=== PATIENT | male | born 1975 | race Caucasian/White ===

== ENCOUNTER 2017-03-01 03:57 | Observation (INO) | payer BC ==
[2017-03-01 05:48] LABS: Hemoglobin 13.6 gm/dL (13.5-18.0); Mean Cell Volume 75.3 fl (78-100); Mean Corpuscular Hemoglobin 24.4 pg (27-31); Mean Corpuscular Hgb Conc 32.4 g/dl (32-36); Mean Platelet Volume 9.5 fl (6.0-9.5); Neutrophil % 70.3 % (42-75.0); Platelet Count 337 K/mm3 (150-450); Red Blood Count 5.58 M/mm3 (4.7-6.0); Red Cell Distribution Width 15.1 % (11.5-14.0)
[2017-03-01] MEDS ORDERED: MORPHINE SULFATE 10 MG/ML SYRG ONE ×2 (05:50→07:50)
[2017-03-01] MEDS ORDERED: MORPHINE SULFATE 10 MG/ML SYRG IV ONE ×2 (05:50→06:01)
[2017-03-01 06:03] LABS: Albumin * 3.8 gm/dl (3.4-5.0); Anion Gap 13.2 mmol/L (6.8-13.8); BUN/Creatinine Ratio 11.3 (9.0-21.6); CRP 12.7 mg/dL (0.0-0.9); Ca. Corrected For Albumin 8.8 mg/dL (8.4-10.2); Carbon Dioxide 26.7 mmol/L (24-32.6); Potassium 3.9 mmol/L (3.4-4.6); Total Protein 8.6 gm/dL (6.2-8.2)
--- NOTE | 2017-03-01 06:10 | ERNOTE ---
Integumentary HPI - General Presenting Symptoms: abscess, other Time Seen by Provider: 03/01/17 04:42 Source: patient - Immun/Allergies/Home Medications Immunizations: IMMUNIZATION HX Immunizations Up to Date Yes History of Influenza Vaccine No Hx Pneumococcal Vaccination No Allergies/Adverse Reactions: Allergies Allergy/AdvReac Type Severity Reaction Status Date / Time Penicillins Allergy Mild rash Verified 03/01/17 05:50 Home Medications: HOME MEDICATIONS Allopurinol [Zyloprim (Allopurinol)] 100 mg PO TID 08/27/15 [Last Taken Unknown] Atorvastatin Calcium 40 mg PO DAILY 08/27/15 [Last Taken Unknown] Naproxen [Naprosyn] 500 mg PO BID PRN #60 tab 08/27/15 [Last Taken Unknown] Testosterone 100 gm MC Q7D 03/01/17 [Last Taken Unknown] - Pain Pain Score: 10 - History of Present Illness Narrative: Patient is a 41-year-old male established patient objective and she presents with a one-week history of increasing scrotal discomfort and redness and concern for abscess. Patient reports that he had a vasectomy many years ago and has had several bouts of superficial cellulitis infection in that area patient denies fevers chills he reports significant pain and increased swelling of the left scrotum itself quite excruciating at this time. Date (Duration): 02/26/17 Time (Timing): 08:00 Location: Reports: genitalia Quality: Reports: painful, other - left testicular swelling. Severity: severe Exposure: Reports: other - has been shaving of the genital area in the past. Previous history of mastectomy. Modifying Factors - (Improves): Reports: nothing Modifying Factors - (Worsens): Reports: other - previous compromise evidence of infection in the past. Associated Symptoms: Reports: change in skin texture, swelling/mass/lumps Review of Systems - Review of Systems Constitutional: Present: no symptoms reported, decreased activity level ENT: Present: no symptoms reported Respiratory: Present: no symptoms reported Cardiology: Present: no symptoms reported Genitourinary: Present: See HPI, pain Musculoskeletal: Present: no symptoms reported Skin: Present: other - red tenderness and significant inflammation of the left scrotal area. Neurological: Present: no symptoms reported Endocrine: Present: no symptoms reported Hematologic/Lymphatic: Present: other - scrotal swelling no lymphadenopathy All Other Systems: All systems neg except as marked - Narrative Narrative: Patient past medical history past surgical history medications allergies and social history and family history reviewed. - Patient's Past Medical History Patient History - Medical: Other - gout Patient History - Cardiac/Respiratory: Hypertension, Hyperlipidemia Patient History - Cancer: No Hx of Cancer Patient History - Surgical Procedures: Vasectomy, Orthopedic Patient History - Other: None - Social History Living Situations: home Abuse History: No History of abuse Psych History: No pertinent hx Smoking Status: Former smoker Have you smoked in the past 12 months: No Alcohol Use: occasionally Drug Use: none - Immunizations Immunizations Up to Date: Yes Hx Pneumococcal Vaccination: No History of Influenza Vaccine: No Physical Exam - Physical Exam Narrative: Patient is in moderate distress due to significant pain after analgesic, he has pain was down to approximately a 4. General Appearance: Present: wd/wn, severe distress Head Exam: Present: normal inspection, no evidence of injury Eye Exam: Normal inspection: bilateral, PERRL: bilateral, EOMI: bilateral Ears, Nose, Throat: Present: normal ENT inspection Neck: Present: normal inspection, nontender Respiratory: Present: no respiratory distress, normal breath sounds, chest nontender, lungs clear Cardiovascular/Chest: Present: regular rate, rhythm, no murmur, normal peripheral pulses Peripheral Pulses: N=norm/S=strong/W=weak/B=bound/A=absent: Carotid (R): Normal , Carotid (L): Normal, Femoral (R): Normal, Femoral (L): Normal Gastrointestinal/Abdominal: Present: normal bowel sounds, nontender, nondistended Rectal Exam: Present: deferred Male Genitals Exam: Present: erythema, inguinal tenderness, scrotum tenderness ( L), testicular tenderness (L), other - significant cellulitis over the left scrotal and testicle area of the testicle itself is identified in all hydrocele sac.. Absent: urethral discharge Back Exam: Present: normal inspection Extremity Exam: Present: normal inspection Neurological Exam: Present: alert, oriented, normal mood/affect Skin Exam: Present: other - see above for genitalia exam. Lymphatic Exam: Present: no adenopathy. Absent: inguinal node (R), inguinal node (L) ED Progress - Results and Orders Patient's Lab Results:: I have reviewed the patient's lab results. Results and Orders: Laboratory Tests 03/01/17 03/01/17 03/01/17 05:45 05:45 06:02 WBC 10.0 RBC 5.58 Hgb 13.6 Hct 42.0 MCV 75.3 L MCH 24.4 L MCHC 32.4 RDW 15.1 H Plt Count 337 MPV 9.5 Immature Gran % (Auto) 0.40 Immature Gran # (Auto) 0.04 H Neutrophils % 70.3 Lymphocytes % 21.8 Monocytes % 6.2 Eosinophils % 0.9 Sodium 136 Plasma Sodium 136 Potassium 3.9 Chloride 100 Carbon Dioxide 26.7 Anion Gap 13.2 BUN 13 Creatinine 1.15 Est GFR (Non-Af Amer) 74 BUN/Creatinine Ratio 11.3 Random Glucose 115 H Lactic Acid, Venous 0.7 Calcium 9.0 Calcium Adj for Albumin 8.8 Total Bilirubin 1.0 AST 17 ALT 25 Alkaline Phosphatase 74 C-Reactive Prot, Quant 12.7 H Total Protein 8.6 H Albumin 3.8 Urinalysis is pending as yet. - Vital Signs Patient's Vital Signs:: I have reviewed the patient's vital signs. Vital Signs: Vital Signs 03/01/17 04:01 Temperature 36.2 C L Pulse Rate 105 H Respiratory 18 Rate Blood Pressure 163/88 O2 Sat by Pulse 97 Oximetry - CT/Ultrasound CT/Ultrasound Narrative: Patient reports increased swelling and redness of the left testicle and scrotal area. Us of scrotum: [place] [address] NAME: MOUNA LANDERS : 1975 MR #: [id number] CC: Malina López DO LOC: ER ADM DATE: X-RAY REPORT [id number] ULT/US Scrotum Exam Date: 03/01/2017 05:24 Ordering Physician: Malina López Indication: Left testicle is hard and swollen Comparison: November 26, 2013 Technique: US Scrotum Findings: The testicles are normal size and echotexture bilaterally. Normal blood flow. No intratesticular masses. There is a possible small varicocele on the right. There is a small right hydrocele There is a left mild to moderate hydrocele. No left varicocele. There is some thickening and complexity to the epididymis on the left with some increased vascularity, correlate for epididymitis on the left. There is scrotal skin thickening bilaterally. Measurements are as follows: Right testicle: 3.8 x 2.3 x 2.2 cm Left testicle: 3.8 x 2.5 x 2.5 cm IMPRESSION: 1. Correlate for possible left-sided epididymitis 2. Normal-appearing testicles 3. [id number] left hydrocele, and a small right hydrocele Preliminary report was delivered to the emergency room via the [facility] service at 7:07 AM on March 01, 2017. Electronically signed by Eric Esparza M.D.. Eric Esparza MD Dict: 03/01/17 0756 Typed: 03/01/17 0756/ 03/01/17 0800 03/01/17 0803 - Progress/Reassessment Chief Complaint: Abscess Progress:: Improved - analgesic effective Plan - Plan Plan: Patient will be admitted to Dr. Pitt for IV antibiotics Departure Clinical Impression: Cellulitis and abscess of unspecified site Clinical Impression: (Ruled Out): Cellulitis and perichondritis of larynx - Departure Disposition: [facility] Condition: Good
[2017-03-01] MEDS ORDERED: MORPHINE SULFATE 2 MG/ML DISP.SYRIN ONE (07:36)
[2017-03-01] MEDS ORDERED: VANCOMYCIN HCL 2 GM in DEXTROSE 5 % IN WATER 500 ML IV PRN ×2 (07:45)
[2017-03-01] MEDS ORDERED: DOXYCYCLINE HYCLATE 100 MG TABLET PO SCH (09:30)
[2017-03-01] MEDS ORDERED: IBUPROFEN 600 MG TABLET PO PRN (09:47)
[2017-03-01] MEDS ORDERED: HYDROmorphone HCL 1 MG/ML DISP.SYRIN IV PRN (09:47)
[2017-03-01] MEDS ORDERED: ONDANSETRON HCL/PF 2 MG/ML VIAL IV PRN (09:47)
[2017-03-01] MEDS ORDERED: diphenhydrAMINE HCL 50 MG/ML VIAL IV PRN (09:47)
[2017-03-01] MEDS ORDERED: HYDROcodone/ACETAMINOPHEN 1 EACH TABLET PO PRN (09:47)
--- NOTE | 2017-03-01 10:01 | HP ---
Chief Complaint - Chief Complaint Date of Service: 03/01/17 Time of Service: 10:01 Chief Complaint: Testicular pain History of Present Illness: The patient is a 41-year-old male who presented to the emergency department with complaints of increasing left testicular swelling, redness and pain. The symptoms have been progressively getting worse over the last week or so. I was made aware of these symptoms yesterday at which time the patient was started on antibiotic; however, he only took one dose prior to arrival in the emergency department. The patient admits to having intermittent episodes like his current presentation ever since he had a vasectomy 5+ years ago. - Patient's Past Medical History Patient History - Medical: Other - gout Patient History - Cardiac/Respiratory: Hypertension, Hyperlipidemia Patient History - Cancer: No Hx of Cancer Patient History - Surgical Procedures: Vasectomy, Orthopedic Patient History - Other: None - Family History Grandmother-Paternal Family History - Medical: Migraines Mother Family History - Medical: History Unknown Family History - Cardiac/Respiratory: History Unknown Family History - Cancer: History Unknown Father Family History - Medical: No pertinent hx Family History - Cardiac/Respiratory: No pertinent hx Family History - Cancer: No pertinent family hx - Social History Living Situations: home Abuse History: No History of abuse Psych History: No pertinent hx Smoking Status: Former smoker Have you smoked in the past 12 months: No Do you dip or chew tobacco: Yes Alcohol Use: occasionally Drug Use: none - Immunizations Immunizations Up to Date: Yes Hx Pneumococcal Vaccination: No History of Influenza Vaccine: No Review Of Systems (GEN) - Review of Systems Generalized/Overall Review: Present: No Symptoms Reported EENTM: Present: No Symptoms Reported Respiratory: Present: No Symptoms Reported Cardiac: Present: No Symptoms Reported Abdominal: Present: No Symptoms Reported Genitourinary: Present: Other - Pain swelling and redness to scrotum left>right and groin left>right Musculoskeletal: Present: Other - Chronic back and joint pain Neurological: Present: No Symptoms Reported Skin: Present: No Symptoms Reported Endocrine: Present: No Symptoms Reported Misc: All systems neg except as marked Immunizations: IMMUNIZATION HX Immunizations Up to Date Yes History of Influenza Vaccine No Hx Pneumococcal Vaccination No Allergies/Adverse Reactions: Allergies Allergy/AdvReac Type Severity Reaction Status Date / Time Penicillins Allergy Mild rash Verified 03/01/17 10:48 Home Medications: HOME MEDICATIONS Allopurinol [Zyloprim (Allopurinol)] 100 mg PO TID 08/27/15 [Last Taken Unknown] Losartan Potassium [Cozaar] 100 mg PO DAILY 03/01/17 [Last Taken Unknown] Testosterone 100 gm MC Q7D 03/01/17 [Last Taken Unknown] Exam - Exam Vital Signs: Vital Signs - Last Taken Temp 37.6 C H 03/01/17 08:46 Pulse 82 03/01/17 08:46 Resp 20 03/01/17 08:46 BP 129/54 03/01/17 08:46 Pulse Ox 97 03/01/17 08:46 Constitutional: Present: Alert, Oriented x3, Cooperative, Mild distress - Appears uncomfortable, especially with movement, secondary to scrotal pain, Obese ENT Exam: Present: hearing grossly normal, moist mucous membranes Eye Exam: bilateral eye: normal inspection, PERRL Respiratory: Present: lungs clear, normal breath sounds, no respiratory distress , no accessory muscle use Cardiovascular/Chest: Present: regular rate, rhythm, no murmur, edema - Trace dependent edema in bilateral lower extremities Abdomen: Present: soft, nontender, nondistended, obese /Rectal: Present: Other - Pain with movement/palpation of testicles left>right , minimal to no erythema, no open areas, no lesions Extremity: Present: normal inspection Skin Exam: Present: warm/dry, no cyanosis Neurologic: Present: no motor/sensory deficits, alert, normal mood/affect, oriented x 3 Appearance: Present: appropriate appearance, appropriate insight, neat, no memory impairment Eye contact: Present: cooperative, good eye contact, normal speech Thoughts: Present: normal thought pattern, no apparent hallucination Diagnostic Studies: Laboratory Results WBC 10.0 K/mm3 (4.0-10.5) 03/01/17 05:45 RBC 5.58 M/mm3 (4.7-6.0) 03/01/17 05:45 Hgb 13.6 gm/dL (13.5-18.0) 03/01/17 05:45 Hct 42.0 % (42.0-52.0) 03/01/17 05:45 MCV 75.3 fl (78-100) L 03/01/17 05:45 MCH 24.4 pg (27-31) L 03/01/17 05:45 MCHC 32.4 g/dl (32-36) 03/01/17 05:45 RDW 15.1 % (11.5-14.0) H 03/01/17 05:45 Plt Count 337 K/mm3 (150-450) 03/01/17 05:45 MPV 9.5 fl (6.0-9.5) 03/01/17 05:45 Immature Gran % (Auto) 0.40 % (0.001-0.429) 03/01/17 05:45 Immature Gran # (Auto) 0.04 K/mm3 (0.000-0.0310) H 03/01/17 05:45 Neutrophils % 70.3 % (42-75.0) 03/01/17 05:45 Lymphocytes % 21.8 % (20-51) 03/01/17 05:45 Monocytes % 6.2 % (0.0-9) 03/01/17 05:45 Eosinophils % 0.9 % (0.0-3.0) 03/01/17 05:45 Basophils % 0.4 % (0.0-1.0) 03/01/17 05:45 Nucleated RBC % 0.0 k/mm3 (0-1) 03/01/17 05:45 Neutrophils # 7.0 K/mm3 (1.3-6.0) H 03/01/17 05:45 Lymphocytes # 2.2 k/mm3 (1.5-3.5) 03/01/17 05:45 Monocytes # 0.6 k/mm3 (0.0-1.0) 03/01/17 05:45 Eosinophils # 0.1 k/mm3 (0.0-0.7) 03/01/17 05:45 Absolute Basophils 0.0 k/mm3 (0.0-0.1) 03/01/17 05:45 Sodium 136 mmol/L (132-142) 03/01/17 05:45 Plasma Sodium 136 mmol/L (130-142) 03/01/17 05:45 Potassium 3.9 mmol/L (3.4-4.6) 03/01/17 05:45 Chloride 100 mmol/L (97-106) 03/01/17 05:45 Carbon Dioxide 26.7 mmol/L (24-32.6) 03/01/17 05:45 Anion Gap 13.2 mmol/L (6.8-13.8) 03/01/17 05:45 BUN 13 mg/dL (6-23) 03/01/17 05:45 Creatinine 1.15 mg/dL (0.4-1.4) 03/01/17 05:45 Est GFR (Non-Af Amer) 74 mL/min (60-130) 03/01/17 05:45 BUN/Creatinine Ratio 11.3 (9.0-21.6) 03/01/17 05:45 Random Glucose 115 mg/dL (70-110) H 03/01/17 05:45 Lactic Acid, Venous 0.7 mmol/L (0.4-1.9) 03/01/17 06:02 Calcium 9.0 mg/dL (7.9-10.9) 03/01/17 05:45 Calcium Adj for Albumin 8.8 mg/dL (8.4-10.2) 03/01/17 05:45 Total Bilirubin 1.0 mg/dL (0.0-1.1) 03/01/17 05:45 AST 17 U/L (0-48) 03/01/17 05:45 ALT 25 U/L (19-67) 03/01/17 05:45 Alkaline Phosphatase 74 U/L (50-170) 03/01/17 05:45 C-Reactive Prot, Quant 12.7 mg/dL (0.0-0.9) H 03/01/17 05:45 Total Protein 8.6 gm/dL (6.2-8.2) H 03/01/17 05:45 Albumin 3.8 gm/dl (3.4-5.0) 03/01/17 05:45 Assessment/Plan - Narrative Narrative: Check G&C. Give ceftriaxone 250mg IM X 1. Start doxycycline 100mg PO BID with plan to continue for 10 days. Patient will be referred to urology as an outpatient. Patient will likely be discharged home later today if and when pain is adequately controlled. - Assessment/Plan (1) Epididymitis Problem: Acute
[2017-03-01 10:39] LABS: Urine Appearance Clear; Urine Bilirubin Negative (NEGATIVE); Urine Blood Negative /ul (NEGATIVE); Urine Color Dark Yellow; Urine Ketone Negative (NEGATIVE); Urine Nitrite Negative (NEGATIVE); Urine Protein 15 mg/dL (NEGATIVE); Urine Specific Gravity 1.025 SP.GR. (1.005-1.030); Urine Urobilinogen Normal (NORMAL)
[2017-03-01 10:40] LABS: Urine Bacteria None Seen; Urine Mucus Few - 1+; Urine RBC TRACE /hpf (0-5); Urine WBC TRACE /hpf (0-5)
[2017-03-01 11:02] VITALS: BP 178/93
[2017-03-01] MEDS: oxyCODONE HCL/ACETAMINOPHEN 1 TAB TABLET PO PRN ×2 (11:08→16:35)
--- NOTE | 2017-03-01 14:36 | DS ---
(1) Epididymitis Problem: Acute Description of Stay: ADMISSION DATE: 03/01/2017 DISCHARGE DATE: 03/01/2017 ADMISSION HPI: The patient is a 41-year-old male who presented to the emergency department with complaints of increasing left testicular swelling, redness and pain. The symptoms have been progressively getting worse over the last week or so. I was made aware of these symptoms yesterday at which time the patient was started on antibiotic; however, he only took one dose prior to arrival in the emergency department. The patient admits to having intermittent episodes like his current presentation ever since he had a vasectomy 5+ years ago. HOSPITAL COURSE: The patient was admitted for scrotal cellulitis as reported by the emergency department physician. However, on my exam there was little to no scrotal erythema and I felt that the patients presentation was most likely consistent with epididymitis. The patient was given a one-time dose of IV vancomycin in the emergency department prior to being admitted. Upon admission, he was given a one-time dose of ceftriaxone 250 mg intramuscularly and he was started on doxycycline 100 mg PO BID with plans to complete a total 10 day course of antibiotics. The patients pain was well-controlled with PRN Percocet and he was discharged home in stable condition. The patient will follow-up with me in clinic on Saturday and during this visit the patient will be referred to urology for further evaluation and management given the patients history of multiple prior similar episodes ever since he had a vasectomy. FOLLOW-UP APPOINTMENTS: -PCP, Dr. Pitt, on Saturday03/04/2017 @ 1:30PM NEW OR CHANGED MEDICATIONS: -Doxycycline 100mg PO BID X 10 days -Percocet 5-325mg 1-2 tabs PO Q4H PRN severe pain (patient given a written prescription for #50 with no refills) DISCONTINUED MEDICATIONS: None RADIOLOGY REPORTS: Ultrasound of the scrotum on 03/01/2017 showed: The testicles are normal size and echotexture bilaterally. Normal blood flow. No intratesticular masses. There is a possible small varicocele on the right. There is a small right hydrocele. There is a left mild to moderate hydrocele. No left varicocele. There is some thickening and complexity to the epididymis on the left with some increased vascularity, correlate for epididymitis on the left. There is scrotal skin thickening bilaterally. Right testicle: 3.8 X 2.3 X 2.2 cm. Left testicle: 3.8 x 2.5 x 2.5 cm. IMPRESSION: Correlate for possible left-sided epididymitis. Normal-appearing testicles. Mild to moderate left hydrocele and a small right hydrocele. Procedures Performed: none Results and Findings: Laboratory Tests 03/01/17 03/01/17 03/01/17 05:22 05:22 05:45 WBC 10.0 C-Reactive Prot, Quant Urine Color Dark yellow Urine Appearance Clear Urine pH 6.0 Ur Specific [place] 1.025 Urine Protein 15 H Urine Glucose (UA) Negative Urine Ketones Negative Urine Blood Negative Urine Nitrate Negative Urine Bilirubin Negative Prot Sulfosalicylic Acd Negative Urine Urobilinogen Normal Ur Leukocyte Esterase Negative Urine RBC Trace Urine WBC Trace Ur Epithelial Cells Trace Urine Bacteria None seen Urine Mucus Few - 1+ H C.trachomatis RNA (TMA) Not detected N.gonorrhoeae RNA (TMA) Not detected 03/01/17 05:45 WBC C-Reactive Prot, Quant 12.7 H Urine Color Urine Appearance Urine pH Ur Specific [place] Urine Protein Urine Glucose (UA) Urine Ketones Urine Blood Urine Nitrate Urine Bilirubin Prot Sulfosalicylic Acd Urine Urobilinogen Ur Leukocyte Esterase Urine RBC Urine WBC Ur Epithelial Cells Urine Bacteria Urine Mucus C.trachomatis RNA (TMA) N.gonorrhoeae RNA (TMA) Discharge Disposition: Home self care Disposition: Home self-care Condition: Stable Discharge Activity: Activity as tolerated Discharge Diet: General/regular food Referrals: Nabila Pitt DO [Primary Care Provider] - Problem Oriented Discharge Instructions to Patient/Family: Cellulitis, Adult, [id number] Additional Patient Instructions (free text): Follow-up with Dr. Pitt on Saturday03/04/2017 @ 1:30PM Prescriptions (Any new or edited meds): Doxycycline Hyclate [Vibratab] 100 mg PO BID #19 tablet oxyCODONE HCL/ACETAMINOPHEN [Percocet 5 MG/325 MG] 1 - 2 tab PO Q4H PRN #50 tablet PRN Reason: Severe Pain Complete Home Medications List: Complete Home Medication List: Allopurinol [Zyloprim] 100 mg PO TID 08/27/15 Doxycycline Hyclate [Vibratab] 100 mg PO BID #19 tablet 03/01/17 Losartan Potassium [Cozaar] 50 mg PO BID 03/01/17 Testosterone 100 gm MC Q7D 03/01/17 oxyCODONE HCL/ACETAMINOPHEN [Percocet 5 MG/325 MG] 1 - 2 tab PO Q4H PRN #50 tablet 03/01/17
[2017-03-01] MEDS ORDERED: TESTOSTERONE MC SCH (14:45)
[2017-03-01] MEDS ORDERED: ALLOPURINOL 100 MG TABLET PO SCH (17:00)
[2017-03-01] MEDS ORDERED: SENNOSIDES/DOCUSATE SODIUM 1 TAB TABLET PO SCH (21:00)
[2017-03-02] MEDS ORDERED: LOSARTAN POTASSIUM 50 MG TABLET PO SCH (09:00)
== END 2017-03-01 17:15 | disposition home or self-care (01) ==
LOC: ER 03:57 → MS 08:55
PROVIDERS: ADMIT Internal Medicine; ATTEND Internal Medicine
DX: N45.1 Epididymitis (principal); I10 Essential (primary) hypertension; E78.5 Hyperlipidemia, unspecified; Z87.891 Personal history of nicotine dependence
CPT/HCPCS: 36415; 76870; 80053; 81001; 83605; 85025; 86140; 87491; 87591; 96365; 96366; 96372; 96374; 96375; 96376; 99284; G0378